=== PATIENT | female | born 1950 | race Caucasian/White ===

== ENCOUNTER 2023-08-21 11:38 | Outpatient (CLI) | payer MEDICARE, SELFPAY ==
--- NOTE | 2023-08-21 12:53 | ECG_ITS ---
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 Measurements Intervals D[place]el Rate: 65 P: 14 MS: 154 QRS: -5 QRSD: 91 T: 10 QT: 402 QTc: 420 Interpretive Statements SINUS RHYTHM VOLTAGE CRITERIA FOR LVH [MEETS CRITERIA IN ONE OF: R(aVL), S(V1), R(V5), R(V5/V6)+S(V1)] BORDERLINE ECG No previous ECG available for comparison Electronically Signed On 08-21-2023 14:58:10 CDT by Dagoberto Mathews M.D.
[2023-08-21 13:33] LABS: Urine Cotinine NEGATIVE
[2023-08-21 16:32] LABS: Hemoglobin A1C 5.4 % (<5.7)
== END 2023-08-21 11:39 | disposition home or self-care (01) ==
LOC: ANHSURGERY 11:45
PROVIDERS: PCP Emergency Medicine; Visit Provider Orthopaedic Surgery
DX: Z01.818 Encounter for other preprocedural examination (principal); M17.12 Unilateral primary osteoarthritis, left knee
CPT/HCPCS: 80307; 83036; 87081; 93005

== ENCOUNTER 2023-09-07 00:30 | Day surgery (SDC) | payer MEDICARE, SELFPAY ==
--- NOTE | 2023-08-21 11:50 | PC.NURSE ---
PRE-OP INSTRUCTIONS, PLEASE READ CAREFULLY Report to the Outpatient Waiting Room, entrance under the green pavilion located off [facility], at time _0600_ on date _09/07/23_. Planned Procedure Time: _0730_. PACK A SMALL OVERNIGHT BAG AND LEAVE IN THE CAR ALONG WITH YOUR WALKER Time changes happen often and if your time is changed the preop area will call you the afternoon before. - You and your visitor will be asked to self-screen and do not enter if you have any COVID symptoms. - A mask is optional within the hospital at this time. -VISITING HOURS 8AM-8PM Patients may have clear liquids (water, carbonated beverages, clear teas, apple juice) until 3 hours prior to surgery (0430 AM) with a maximum of 20 ounces. - No food from midnight until time of surgery Take the following medications with a SIP of water the morning of surgery: _TYLENOL IF NEEDED_ DO NOT STOP ANY OF YOUR OTHER PRESCRIPTION MEDICATIONS PRIOR TO SURGERY ?EXCEPT THE FOLLOWING Medications to discontinue per DR. BYERS - _DICLOFENAC 7 DAYS PRIOR TO SURGERY, Date to take last dose 08/30/23_ Medications to discontinue per ANESTHESIA - _MULTIVITAMIN & SUPPLEMENTS 3 DAYS PRIOR TO SURGERY, Date to take last dose 09/03/23_ Please no make-up, nail syrian, hairspray, perfume, deodorant, or body powder the day of surgery. No jewelry (including any body piercings) or valuables the day of surgery, leave them at home. Please take a shower or bath the night before, or the morning of, surgery with an antibacterial soap. Wear comfortable, loose fitting clothing. - Jewelry must be removed prior to entering the operating room. Rings and piercings that are not removed may be cut off. - The hospital will not accept responsibility for valuables. - Please leave all valuables, including medications, at home the day of surgery. If you are going home after surgery, a licensed lease purchase truck driver must drive you home. - NO public transportation without another adult if you receive anesthesia. - We recommend that an adult stay with you for 24 hours following discharge. - We also recommend that you do not drive, make important decision, drink alcoholic beverages, or take any drugs that were not prescribed by your health care provider for at least 24 hours after your discharge time. Follow any additional instructions given to you from your surgeon. If you or anyone in your household have experienced Covid symptoms in the past week, please notify your surgeon or the nurse liaison at the phone number below for possible testing. Telephone instructions given to _PATIENT_and asked if any additional questions and then verbalized understanding. Patient advised to call surgeon office or pre surgery nurse liaison [phone] if any additional questions.
[2023-08-21 12:11] VITALS: BP 128/64; PULSE 66; RESP 18; TEMP 36.9; O2SAT 100; BMI 31.3
--- NOTE | 2023-09-04 11:36 | PM.IMHP ---
H&P: HPI History of Present Illness Date/Time: 09/04/23 11:36 Chief Complaint: Left knee DJD Narrative: 71-year-old female patient of Dr. Jade 2 presents today for a left total knee arthroplasty. She underwent partial knee replacement on the right in 2019. She did well to recovery is happy with the results. Her left knee she has severe arthritis. She has subluxation of the femur on the tibia on the x-rays and is not considered a candidate for partial knee replacement. Patient is had cortisone injections in the past as well as Visco supplementations. Last cortisone injection was in February of 2023 which only helped for about a month. She takes diclofenac 50 mg twice a day. She has pain on a daily basis. It is affecting her daily lifestyle at this point she feels she is ready to proceed with total knee arthroplasty rather than continue nonsurgical treatment Review of Systems Review of Systems: All systems reviewed & are unremarkable except as noted in HPI and below PMFSH Past Medical History Medical History (Updated 08/04/23 @ 07:51 by Cuauhtemoc Carson MD) Hypertension Surgical History Surgical History (Updated 08/02/23 @ 10:55 by Zayra Moulton CMA) History of lumpectomy of left breast History of partial knee replacement Right knee Family History Family History (Updated 08/02/23 @ 10:56 by Zayra Moulton CMA) Mother Heart disease Lung disease Other Heart attack Social History Social History (Updated 08/02/23 @ 10:56 by Zayra Moulton CMA) Smoking status: Never smoker Second hand tobacco smoke exposure: No Additional smoking assessment comments: PT DENIES ALL FORMS OF TOBACCO USE Alcohol intake: current Alcohol use details: 1-2 DRINKS/YR Substance use: never Substance use type: does not use Do You Feel Safe in your Home?: Yes Lack of Transportation: No Lack of Food: Never True Current Housing: I Have Housing Concerned About Future Housing: No Difficulty Paying Gas/Electric Bills: No Difficulty Paying for Meds: No Currently Unemployed: No Education: High School Diploma/GED Difficulty w/ Childcare or Family Care: No Living arrangements: with family Occupation/Education: retired Spiritual care concerns: No Meds Home Medications and Allergies Home Medications Medication Instructions Recorded Confirmed Type amlodipine 5 mg-valsartan 160 0.5 tablet PO DAILY 08/02/23 08/21/23 History mg-hydrochlorothiazide 12.5 mg tablet diclofenac sodium 50 mg 50 mg PO BID 08/02/23 08/21/23 History tablet,delayed release pantoprazole 20 mg tablet,delayed 10 mg PO QAM 08/02/23 08/21/23 History release acetaminophen 650 mg 650 mg PO Q8H PRN Pain 08/21/23 08/21/23 History tablet,extended release (Tylenol 8 Hour) calcium carb-vit D3-minerals 600 1 tablet PO BID 08/21/23 08/21/23 History mg calcium-400 unit tablet cyanocobalamin (vitamin B-12) 1,000 mcg PO DAILY 08/21/23 08/21/23 History 1,000 mcg capsule multivitamin 1 tablet PO DAILY 08/21/23 08/21/23 History turmeric 1,000 mg DAILY 08/21/23 08/21/23 History [id number] 1 tablet PO DAILY 08/21/23 08/21/23 History 18 mg-10 mg-45 mg-5 mg-250 mg tablet (B Complex w-Vit C) Allergies Allergy/AdvReac Type Severity Reaction Status Date / Time No Known Allergies Allergy Unknown Verified 08/21/23 12:02 Exam Narrative: 73-year-old female alert pleasant. She is 5 ft 1 160 lb, BMI is 31.3. Her left knee range of motion is from 0-125 degrees with pain in full flexion. She has a mild varus deformity in extension. Moderate medial joint line tenderness to palpation mild lateral joint line tenderness. Severe pain with patellofemoral grind. Normal ligament exam in the knee. Hip range of motion is full without discomfort, negative Stinchfield maneuver. Normal quad strength. No edema in lower extremities. 2+ dorsalis pedis and posterior
[2023-09-07] VITALS (16 sets, daily range): BP systolic 111–146; BP diastolic 51–73; PULSE 63–81; RESP 12–16; TEMP 35.6–37; O2SAT 96–100
--- NOTE | ~2023-09-07 | XR_ITS ---
[id number] Ordering provider: Cuauhtemoc Carson MD History: . POST-OP, LEFT TKA . Comparison: None. FINDINGS: BONES: No acute fracture or dislocation. JOINT SPACES: Total knee arthroplasty. Air with postoperative changes seen in the area of the patella . SOFT TISSUES: Normal. IMPRESSION: No acute osseous abnormality left knee. Total knee arthroplasty. Reviewed, dictated and finalized at location A.
[2023-09-07] MEDS: ACETAMINOPHEN 500 MG TABLET 1000 MG PO (06:20)
[2023-09-07] MEDS: VANCOMYCIN 1,000 MG/NS 250 ML BAG 250 MG IVPB (06:35)
--- NOTE | 2023-09-07 06:53 | WPDANESEPPF ---
Anes - Initial Pre Proc Eval Procedure: Operation Date: 09/07/23 07:30 Proposed Procedures p Left Total Knee Arthroplasty - Cuauhtemoc Carson MD Date/Time: 09/07/23 06:53 Surgeon: Cuauhtemoc Carson MD Pre Op Diagnosis: oa left knee Patient Data Age: 73 Gender: F Height: 1.52 m Weight: 73.1 kg Last Vital Signs Temp 98.6 F 09/07/23 06:41 Pulse 65 09/07/23 06:41 Resp 16 09/07/23 06:41 BP 146/65 H 09/07/23 06:41 Pulse Ox 100 09/07/23 06:41 O2 Del Method Room Air 09/07/23 06:41 Allergies Allergy/AdvReac Type Severity Reaction Status Date / Time No Known Allergies Allergy Unknown Verified 09/07/23 06:11 Home Medications Medication Instructions Recorded Confirmed Type amlodipine 5 mg-valsartan 160 0.5 tablet PO DAILY 08/02/23 09/07/23 History mg-hydrochlorothiazide 12.5 mg tablet diclofenac sodium 50 mg 50 mg PO BID 08/02/23 09/07/23 History tablet,delayed release pantoprazole 20 mg tablet,delayed 10 mg PO QAM 08/02/23 09/07/23 History release acetaminophen 650 mg 650 mg PO Q8H PRN Pain 08/21/23 09/07/23 History tablet,extended release (Tylenol 8 Hour) calcium carb-vit D3-minerals 600 1 tablet PO BID 08/21/23 09/07/23 History mg calcium-400 unit tablet cyanocobalamin (vitamin B-12) 1,000 mcg PO DAILY 08/21/23 09/07/23 History 1,000 mcg capsule multivitamin 1 tablet PO DAILY 08/21/23 09/07/23 History turmeric 1,000 mg DAILY 08/21/23 09/07/23 History [id number] 1 tablet PO DAILY 08/21/23 09/07/23 History 18 mg-10 mg-45 mg-5 mg-250 mg tablet (B Complex w-Vit C) Patient hx anesthesia problems: none Family hx anesthesia problems: none Results Review: All pre-operative results and documents have been reviewed as part of the pre-operative evaluation. PMFSH Past Medical History Medical History Hypertension Surgical History Surgical History History of lumpectomy of left breast History of partial knee replacement Right knee Family History Family History Mother Heart disease Lung disease Other Heart attack Social History Social History Smoking status: Never smoker Second hand tobacco smoke exposure: No Additional smoking assessment comments: PT DENIES ALL FORMS OF TOBACCO USE Alcohol intake: current Alcohol use details: 1-2 DRINKS/YR Substance use: never Substance use type: does not use Do You Feel Safe in your Home?: Yes Lack of Transportation: No Lack of Food: Never True Current Housing: I Have Housing Concerned About Future Housing: No Difficulty Paying Gas/Electric Bills: No Difficulty Paying for Meds: No Currently Unemployed: No Education: High School Diploma/GED Difficulty w/ Childcare or Family Care: No Living arrangements: with family Occupation/Education: retired Spiritual care concerns: No Anes - Eval Final PreProcedure Day of Procedure 09/07/23 06:53 Patient weight: normal Heart: regular rate and rhythm Lungs: clear to auscultation Airway: Mallampati scale and special considerations (Missing lower teeth on each side, upper R incisor w noted chip. ) Neurological: alert and oriented Last oral intake: >/= 8 hours ASA classification: II Emergent: no Anesthetic plan: proceed Anesthesia type and monitoring: general ETT and standard monitoring Results Review: All pre-operative results and documents have been reviewed as part of the pre-operative evaluation. EKG w NSR, LVH. Informed Consent: The patient's anesthetic plan and its attendant risks and benefits were discussed with the patient/family/POA. Questions were solicited and answers provided to the satisfaction of the patient/family/POA.
[2023-09-07] MEDS: TRANEXAMIC ACID 1,000MG/ISO100 1,000 MG/100 ML BAG 200 MG IVPB (07:02)
--- NOTE | 2023-09-07 07:11 | WPDHPUPDATE1 ---
History and Physical Update Update Date/Time: 09/07/23 07:11 History and Physical has been reviewed, including an updated exam of the patient. There are NO changes in the patient's condition. Risks, benefits, and alternatives have been discussed and questions answered. Patient agrees to proceed with procedure.
[2023-09-07] MEDS: ceFAZolin 2 GM/D5W 50 ML 2 GM/50 ML BAG IVPB (07:30)
[2023-09-07] MEDS: SODIUM CHLORIDE 0.9% IV 37.7 ML, MORPHINE SULFATE INJ (*CRX) 2 MG, ROPivacaine HCL 1% 2... INFILTRATE (08:15)
[2023-09-07] MEDS: ceFAZolin SODIUM 1 GM VIAL 5 GM (08:16)
--- NOTE | 2023-09-07 08:34 | SUR.OPER ---
SCD machine to right leg not working properly/alarming. Informed Dr. Carson and Javi An that SCD machine needed attention/replacement. Dr. Carson/Javi An refused for SCD replacement. Dr. Boone addressed the issue with surgical team/Dr. Kothari. Dr. Boone and HERNAN notified/aware that SCD replacement refused.
[2023-09-07] MEDS: TRANEXAMIC ACID 1,000 MG/10 ML AMPUL 1000 MG IV PUSH (09:49)
[2023-09-07] MEDS: ceFAZolin SODIUM 1 GM VIAL 2 GM IV PUSH (09:50)
[2023-09-07] MEDS: KETOROLAC 15 MG/ML VIAL (*BKC) IV PUSH (10:19)
[2023-09-07] MEDS: LACTATED RINGERS 1,000 ML 30 ML IV CONT ×2 (10:43)
--- NOTE | 2023-09-07 10:46 | W.PM.PROC2 ---
Procedure Note - Detailed Date of Procedure 09/07/23 Pre-op Diagnosis oa left knee Post-op Diagnosis Same Procedure Performed Left total knee arthroplasty Surgeon Cuauhtemoc Carson MD Band Presser Francisca KENNEDY Anesthesia General Description of Procedure Patient was brought to the operating room and general anesthesia was administered. She received 2 g of Ancef weight based vancomycin 1 g of tranexamic acid preoperatively. Under anesthesia, the left knee did hyperextend a few degrees at least and there was quite a bit of varus valgus laxity in extension. Medially it was pseudolaxity with a good endpoint. The left knee was prepped draped usual fashion. Limb was exsanguinated tourniquet elevated to 300 mmHg. A 7 in longitudinal midline incision was used and a vastus medialis splitting approach utilized splitting the vastus medialis at the superior pole of patella. Infrapatellar fat pad partially excised quadriceps synovectomy carried out. Small osteophytes removed from around the femur the articular cartilage was essentially normal. Minimal lateral facetectomy was performed. A guide jayde was inserted down the femoral canal after aspiration of canal contents using the 5 degree valgus guide, 8 mm of bone removed the distal femur. Next the tibial plateau was cut making a skim cut off the low point medial tibial plateau. This removed about 12 mm laterally. Cut was made perpendicular to the axis of the tibia. Small residual anteromedial tibial osteophytes removed. Meniscal remnants were excised and the PCL was rate recessed from the femur but we did not release posterior capsule. In flexion the gap measured 8 mm medially and 12 mm laterally. The femoral sizing guide was applied the distal femur set at 5? of external rotation which matched Whitesides line. Posterior referencing pinholes were placed. The femur was cut to a size 60 which gave a flush cut with the anterior cortex. The size 60 was trialed and 1 was placed flushed with the medial surface of the medial femoral condyle it overhung 1 mm laterally from the distal lateral femoral condyle. The posterior condyles had a mm bone protruding from the medial and lateral aspects of condyles of the femoral trial respectively. The 10 CR insert trial was placed easily in flexion with a little bit more play at 90? laterally and medially still. The tibia was sized to a 63. We could not get the 67 to fit without overhang at the proper rotation. Confirmation of a flat tibial surface was carried out in the 63 was punched in proper position and we trialed with the 11 insert. This was loose laterally in extension and allowed full extension with a little hyperextension. No play medially. At 90? of flexion the medial side was tighter about 1 mm medial opening versus 3 of lateral opening at 90?. We carefully removed medial and posteromedial tibial osteophyte which was fairly prominent without releasing posteromedial capsule. We then trialed with the 12 and the 12 came out to about 2? of hyperextension with 0.5 mm plate medially and about 4 mm of play laterally. At 90? there was 1 mm play medially to laterally and there was about 3 or 4 mm of anterior posterior drawer play at 90? with the arthrotomy towel clipped. The 5 degree alignment jayde was inserted on the distal femur and I saw that our femur was cut at about 5.5? by this measure. I elected to use piece of chamfer bone and make a 1.[address] on the lateral aspect distal lateral femoral condyle cut and we reinserted the femoral trial and with this the knee opened up about 2-3 mm laterally in extension and had a much better stability feel. The lug holes were drilled. The wafer was irrigated with antibiotic solution and dried and the bony surfaces after preparation with the step drill were irrigated and dried. Two batches of methylmethacrylate were mixed 1 with the gentamicin powder cement was applied to the tibial component size 63 and the size 60 left CR fem
[2023-09-07] MEDS: fentaNYL CITRATE INJ (*CRX) 100 MCG/2 ML VIAL 25 MCG IV PUSH ×2 (11:02→11:13)
[2023-09-07] MEDS: SODIUM CHLORIDE 0.9% IV 1,000 ML 125 ML IV CONT (12:41)
[2023-09-07] MEDS: ACETAMINOPHEN 325 MG TABLET 650 MG PO ×3 (12:44→20:18)
[2023-09-07] MEDS: oxyCODONE HCL (*CRX) 5 MG TAB IR PO ×3 (12:45→20:18)
[2023-09-07] MEDS: ONDANSETRON INJ 4 MG/2 ML VIAL IV PUSH ×2 (12:53→17:02)
--- NOTE | 2023-09-07 13:00 | ADMGEN ---
This patient, Yolande Pugh, was admitted to [facility] Surg Room 327-01. Patient/family oriented to hospital policies and general routines including ID bracelet, bed and alarms, visiting hours, pain management, procedures, bathroom and other care routines, personal items, smoking policy, room service/diet, and visiting hours. Information on how to activate the Rapid Response Team has been discussed. Patient/Family are encouraged to report perceived risks to care and to ask questions if they do not understand what they are told or what they should do.
--- NOTE | 2023-09-07 13:30 | PM.IMCN ---
Assessment and Plan Assessment and plan (1) Primary osteoarthritis of left knee: Code(s): M17.12 - Unilateral primary osteoarthritis, left knee Status: Acute Assessment and Plan: Patient underwent a total left knee arthroplasty on 09/07/2023 with Alli CAMP. - ambulate with assistance and up to chair - use IS - neurovasc checks - see order for intervals - SCDs - resume diet - pain management - zofran PRN for nausea - monitor labs in AM - CBC and BMP - bowel regimen: docusate/senna, polyethylene glycol - maintenance fluids: NS 125 mL/hr x8 hrs - prophylactic abx - Ancef - PT/OT (2) Hypertension: Code(s): I10 - Essential (primary) hypertension Status: Chronic Assessment and Plan: - chronic, currently 138/66 - continue home medications: [id number] resumed - monitor Plan Patient underwent a left knee total arthroplasty on 09/07/2023. home medications reviewed and resumed as appropriate. Awaiting PT/OT eval and treat. Diet: regular GI Prophylaxis: not indicated DVT Prophylaxis: SCDs, starting Eliquis tomorrow Lines: peripheral Code Status: full code HPI Date of Consult Consult date: 09/08/23 Requesting Physician: Cuauhtemoc Carson MD Primary Care Provider: Sher Jade, Consult Narrative Reason for consult: Medical Management Narrative: 73 y/o F presents here for surgical management of her severe left knee arthritis with PMH of HTN. The patient presented here for a surgical management of naeem severe left knee arthritis. Pain in her left knee has been affecting her ADLs and other activities (i.e. walking, standing, dancing). Has previously tried conservative treatment: cortisone injections, Visco supplementation, Tylenol arthritis, and diclofenac. Last injection in Feb which only provided short relief. She has previously underwent a right partial knee replacement in 2019. Patient was satisfied with the results. However, due to subluxation seen on XR, she is not a candidate for a partial replacement. Patient proceeded with the left knee total arthroplasty today (09/06) with Alli CAMP. No current complaints. Denying nausea, vomiting, or significant post-op pain. Reports recent change to her medication - HTN med, however it was too much so she has been cutting the dose in half. Preop workup:Hemoglobin A1c 5.4%, cotinine negative, XR L Knee showed severe medial compartment osteoarthritis which is [id number]-hv-vvvf with moderate medial subluxation of femur on tibia resulting in varus deformity. Preop VS: 98.5? F, HR 66, RR 18, 128/64, and 100% on RA. Review of Systems Review of Systems: All systems reviewed & are unremarkable except as noted in HPI and below PMFSH Past Medical History Medical History (Updated 09/07/23 @ 13:56 by Karen Marc APRN) Esophageal stricture s/p dilation in 2022 GERD (gastroesophageal reflux disease) Hypertension Osteoarthritis, multiple sites Precancerous skin lesion s/p cryotherapy, facial Surgical History Surgical History History of lumpectomy of left breast History of partial knee replacement Right knee Family History Family History Mother Heart disease Lung disease Other Heart attack Social History Social History Smoking status: Never smoker Second hand tobacco smoke exposure: No Additional smoking assessment comments: PT DENIES ALL FORMS OF TOBACCO USE Alcohol intake: current Alcohol use details: 1-2 DRINKS/YR Substance use: never Substance use type: does not use Do You Feel Safe in your Home?: Yes Lack of Transportation: No Lack of Food: Never True Current Housing: I Have Housing Concerned About Future Housing: No Difficulty Paying Gas/Electric Bills: No Difficulty Paying for Meds: No
[2023-09-07] MEDS: ceFAZolin 1 GM/NS 50 ML 1 GM/50 ML BAG IVPB ×2 (14:34→22:27)
--- NOTE | 2023-09-07 14:55 | PCPTNOTE ---
Attempted PT evaluation, pt actively vomiting and reporting dizziness. RN present prior to therapist leaving the room.
[2023-09-07] MEDS: SENNA/DOCUSATE SODIUM TABLET 2 TAB PO (16:44)
[2023-09-07] MEDS: VANCOMYCIN 1,000 MG/NS 250 ML 1,000 MG/250 ML BAG 250 MG IVPB (16:45)
[2023-09-07] MEDS: FAMOTIDINE 20 MG TABLET PO (20:18)
[2023-09-08] MEDS: ACETAMINOPHEN 325 MG TABLET 650 MG PO ×3 (00:07→08:45)
[2023-09-08] MEDS: oxyCODONE HCL (*CRX) 5 MG TAB IR PO ×4 (00:07→11:25)
[2023-09-08 02:01] VITALS: BP 105/47; PULSE 68; RESP 13; TEMP 36.6; O2SAT 95
[2023-09-08] MEDS: ONDANSETRON INJ 4 MG/2 ML VIAL IV PUSH (05:08)
[2023-09-08] MEDS: VANCOMYCIN 1,000 MG/NS 250 ML 1,000 MG/250 ML BAG 250 MG IVPB (05:26)
[2023-09-08 05:52] VITALS: BP 105/46; PULSE 66; RESP 13; TEMP 36.5; O2SAT 97
[2023-09-08 06:58] LABS: Basophils Percent Auto 0.2 % (0.2-1.2); Hematocrit 29.7 % (37.0-47.0); Hemoglobin 9.8 g/dL (12.0-15.0); Immature Granulocyte Absolute 0.03 K/mm3 (0.00-0.031); Immature Granulocyte Percent A 0.3 % (0-0.5); Lymphocytes Absolute Auto 1.18 K/mm3 (0.9-3.2); Lymphocytes Percent Auto 11.2 % (18.3-44.2); Mean Corpuscular Hemoglobin 30.7 pg (26-34); Mean Corpuscular Volume 93.1 fl (80-100); Mean Platelet Volume 9.6 fl (7.4-10.4); Monocytes Absolute Auto 1.2 K/mm3 (0.1-0.6); Monocytes Percent Auto 11.1 % (2.6-8.5); Neutrophils Absolute Auto 8.2 K/mm3 (1.3-6.7); Neutrophils Percent Auto 77.2 % (45.5-73.1); Platelet Count Result 217 k/mm3 (150-375); Red Blood Count 3.19 M/mm3 (4.2-5.4); Red Cell Distribution Width 13.9 % (11.5-14.5); White Blood Count 10.6 K/mm3 (4.5-10.0)
[2023-09-08 07:10] LABS: Anion Gap 4 mmol/L (4-12); Blood Urea Nitrogen 11 mg/dL (7-17); Calcium 8.7 mg/dL (8.4-10.2); Carbon Dioxide 25 mmol/L (22-30); Chloride 108 mmol/L (98-107); Estimated CRCL calculation 56 ml/min; Estimated Glomerular Filt Rate > 60; Glucose 113 mg/dL (65-110); Potassium 3.5 mmol/L (3.4-5.0); Sodium 137 mmol/L (137-145)
--- NOTE | 2023-09-08 07:21 | PM.PNORT ---
Subjective Subjective Date/Time Seen: 09/08/23 07:21 Interval history: Postop day 1 patient is alert. She is afebrile vital signs are stable. She did have some nausea postoperatively yesterday little bit overnight. This is dissipated at this point. Pain is well controlled. Morning labs and not been completed. She was up walking to the restroom and in her room yesterday. Dressing is dry and intact she only has minimal swelling in the knee. Neurovascularly she is intact. Will plan to have patient work with Physical therapy this morning and if she is comfortable she be discharged home. If she wishes to stay for an additional therapy session she will leave this afternoon. Objective Data Vital Signs Vital Signs: Vital Signs - 24 hr 09/07/23 10:43 09/07/23 10:50 09/07/23 11:00 Temperature 97.9 F Pulse Rate 73 68 70 Respiratory Rate 16 12 12 Blood Pressure 111/57 L 127/67 127/67 Pulse Oximetry 99 100 100 Oxygen Delivery Simple Face Mask Simple Face Mask Simple Face Mask Oxygen Flow Rate 8 8 8 09/07/23 11:15 09/07/23 11:30 09/07/23 11:45 Temperature Pulse Rate 68 63 72 Respiratory Rate 12 12 12 Blood Pressure 121/60 117/65 137/73 Pulse Oximetry 96 100 100 Oxygen Delivery Nasal Cannula Nasal Cannula Nasal Cannula Oxygen Flow Rate 2 2 2 09/07/23 12:00 09/07/23 12:10 09/07/23 12:30 Temperature 96.0 F L Pulse Rate 72 81 74 Respiratory Rate 12 12 16 Blood Pressure 133/70 142/66 H 144/68 H Pulse Oximetry 100 100 100 Oxygen Delivery Nasal Cannula Nasal Cannula Oxygen Flow Rate 2 2 09/07/23 13:15 09/07/23 12:45 09/07/23 13:15 Temperature 96.0 F L 96.0 F L Pulse Rate 80 81 Respiratory Rate 14 16 Blood Pressure 140/69 138/66 Pulse Oximetry 100 100 100 Oxygen Delivery Nasal Cannula Oxygen Flow Rate 3 09/07/23 14:15 09/07/23 18:01 09/07/23 21:13 Temperature 96.0 F L 97.6 F 98.3 F Pulse Rate 68 64 68 Respiratory Rate 16 16 13 Blood Pressure 138/67 126/62 117/51 L Pulse Oximetry 100 99 97 Oxygen Delivery Oxygen Flow Rate 09/07/23 20:20 09/08/23 02:01 09/08/23 05:52 Temperature 97.8 F 97.7 F Pulse Rate 68 68 66 Respiratory Rate 13 13 13 Blood Pressure 105/47 L 105/46 L Pulse Oximetry 97 95 97 Oxygen Delivery Room Air Oxygen Flow Rate Intake/Output Intake/Output: Intake & Output 09/05/23 09/06/23 09/07/23 09/08/23 23:59 23:59 23:59 23:59 Intake Total 700 750 Output Total 350 Balance 350 750 Meds/Results Medications: Active Medications Generic Name Dose Route Start Last Admin Trade Name Freq PRN Reason Stop Dose Admin Acetaminophen 650 mg 09/07/23 13:00 09/08/23 05:26 Acetaminophen 325 Mg Tablet PO 650 mg Q4H JANETTE Administration Amlodipine Besylate 2.5 mg 09/08/23 09:00 Amlodipine Besylate 2.5 Mg Tablet PO 10/08/23 08:59 DAILY JANETTE Apixaban 2.5 mg 09/08/23 09:00 Apixaban 2.5 Mg Tablet PO 09/19/23 21:01 Q12HR JANETTE Cefdinir 300 mg 09/08/23 09:00 Cefdinir 300 Mg Capsule PO Q12HR JANETTE Celecoxib 200 mg 09/08/23 08:00 Celecoxib 200 Mg Capsule PO DAILY@0800 JANETTE Cyanocobalamin 1,000 mcg 09/08/23 09:00 Cyanocobalamin 1,000 Mcg Tablet PO DAILY JANETTE Diphenhydramine HCl 25 mg 09/07/23 12:16 Diphenhydramine Hcl Inj 50 Mg/Ml Vial IV PUSH Q6H PRN Itching Famotidine 20 mg 09/07/23 21:00 09/07/23 20:18 Famotidine 20 Mg Tablet PO 20 mg Q12HR JANETTE Administration Hydrochlorothiazide 6.25 mg 09/08/23 09:00 Hydrochlorothiazide 6.25 Mg Tablet PO DAILY JANETTE Cefazolin Sodium 1 gm in 50 mls @ 100 mls/hr 09/07/23 15:00 09/07/23 22:27 Ancef 1 Gm/Ns 50 Ml IVPB 09/08/23 07:29 100 mls/hr Q8H JANETTE Administration Morphine Sulfate 2 mg 09/07/23 12:16 Morphine Sulfate (*Crx) 2 Mg/Ml Inj IV PUSH Q2H PRN Breakthrough Pain Rated 4-6 or NPO Naloxone HCl 0.1 mg 09/07/23 12:16 Naloxone Hcl 0.4 Mg/Ml Vial IV PUSH Q2M PRN Opiat
--- NOTE | 2023-09-08 07:26 | PM.DS ---
DS: Admitting Diagnosis Discharge Date 09/06 Admitting Diagnosis Left knee DJD DS: Discharge Diagnosis Discharge Diagnosis (1) Primary osteoarthritis of left knee: Code(s): M17.12 - Unilateral primary osteoarthritis, left knee Status: Acute DS: Summary Hospital Course Hospital Course: 73-year-old female who underwent left total knee arthroplasty on 09/07. Underwent the procedure without complications. She did have nausea postoperatively the day of surgery and overnight. This did dissipate by the morning of postop day 1. She is on Eliquis for DVT prophylaxis. She is weight-bearing as tolerated. She was up walking in her room with therapy the day of surgery. Pain is well controlled with scheduled Tylenol every 4 hours as well as oxycodone 5 mg. She has been afebrile vital signs are stable through her hospital course. She will be discharged to home on 09/07. Patient was advised to keep the leg elevated at home to prevent swelling. She should do her exercises hourly basis at home. She will home with 1 week Omnicef. She will also get Senokot and MiraLax. Patient was advised any questions or concerns she is to call the office otherwise we will see her at her appointments Time Spent with Patient Time attestation: Total time spent providing and/or coordinating discharge services: DS: Data Data Completed and Pending Labs on day of discharge: Labs from last 24 hours 09/08/23 06:31 WBC 10.6 H RBC 3.19 L Hgb 9.8 L Hct 29.7 L MCV 93.1 MCH 30.7 MCHC 33.0 RDW 13.9 Plt Count 217 MPV 9.6 Immature Gran % (Auto) 0.3 Neut % (Auto) 77.2 H Lymph % (Auto) 11.2 L [place] % (Auto) 11.1 H Eos % (Auto) 0.0 Baso % (Auto) 0.2 Lymph # (Auto) 1.18 [place] # (Auto) 1.2 H Eos # (Auto) 0.0 Baso # (Auto) 0.0 Abs Immat Gran (auto) 0.03 Absolute Neuts (auto) 8.2 H Absolute Nucleated RBC 0.000 Nucleated RBC % 0.0 Sodium 137 Potassium 3.5 Chloride 108 H Carbon Dioxide 25 Anion Gap 4 BUN 11 Creatinine 0.70 Estim Creat Clear Calc 56 Estimated GFR > 60 Glucose 113 H Calcium 8.7 Discharge Plan Discharge Patient Disposition: Home, Self-Care Discharge Instructions: MILANA BYERS M.D [facility] [address] [place] [address] POST-OPERATIVE DISCHARGE INSTRUCTIONS TOTAL KNEE ARTHROPLASTY 1. When resting, do not rest in the chair.When resting, lie on your back, with back flat on the couch or bed, with leg elevated above heart to minimize swelling. You may put a pillow under your head. . Significant swelling could indicate a blood clot and if this occurs call the office (or go to the ER) to have a venous ultrasound. Therefore, do not rest in a chair. 2. At least five times a day spend several minutes stretching your knee into flexion while sitting in the chair and also stretching your knee out straight The abilities to bend your knee fully and straighten your knee fully are two most important knee functions to focus on during your recovery. 3. It is ok to sit in chair to eat, use the toilet and receive a guest and to do your stretching exercises, but, sitting in a chair will cause your leg to swell. Therefore, avoid additional time sitting in the chair. and don't rest in the chair. 4. Wound Care: Nursing will give you an additional Mepilex dressing at the time of discharge. Patient to remove the dressing and apply a new Mepilex dressing at home 7 days after surgery and leave the dressing on until seen in office. It is normal to see a small amount of blood on the silver pad of the Mepilex dressing. Its designed to hold small spots of blood. However, if the blood reaches the edge of the pad up to the boarder of the clear membrane that surrounds the pad, the pad is saturated and the Mepilex dressing should be removed and a new Mepilex dressing should be applied. 5. May shower with a Mepilex dressing in place.The water will run off
[2023-09-08 08:00] VITALS: BP 109/47; PULSE 60; RESP 20; TEMP 37.1; O2SAT 95
--- NOTE | 2023-09-08 08:01 | WPDANESPN ---
Anes - Prog Note Post-Op Date/Time: 09/08/23 08:01 Cardiovascular status: normal Respiratory status: normal Airway patency: baseline Mental status: baseline Post-Op hydration status: normal Vital Signs: Last Vital Signs Temp 36.5 C 09/08/23 05:52 Pulse 66 09/08/23 05:52 Resp 13 09/08/23 05:52 BP 105/46 L 09/08/23 05:52 Pulse Ox 97 09/08/23 05:52 O2 Del Method Room Air 09/07/23 20:20 O2 Flow Rate 3 09/07/23 13:15 Pain Score (VAS): Patient asleep, no nonverbal signs of pain present at this time. I/O: Intake & Output 09/07/23 09/08/23 09/08/23 23:59 07:59 15:59 Intake Total 250 750 Output Total 350 Balance -100 750 Laboratory Tests 09/08/23 06:31 09/08/23 06:31 09/08/23 06:31 WBC 10.6 H RBC 3.19 L Hgb 9.8 L Hct 29.7 L MCV 93.1 MCH 30.7 MCHC 33.0 RDW 13.9 Plt Count 217 MPV 9.6 Immature Gran % (Auto) 0.3 Neut % (Auto) 77.2 H Lymph % (Auto) 11.2 L [place] % (Auto) 11.1 H Eos % (Auto) 0.0 Baso % (Auto) 0.2 Lymph # (Auto) 1.18 [place] # (Auto) 1.2 H Eos # (Auto) 0.0 Baso # (Auto) 0.0 Abs Immat Gran (auto) 0.03 Absolute Neuts (auto) 8.2 H Absolute Nucleated RBC 0.000 Nucleated RBC % 0.0 Sodium 137 Potassium 3.5 Chloride 108 H Carbon Dioxide 25 Anion Gap 4 BUN 11 Creatinine 0.70 Estim Creat Clear Calc 56 Estimated GFR > 60 Glucose 113 H Calcium 8.7 Post-procedural complaints: none Patient Feedback: Patient satisfied with anesthetic care.
[2023-09-08] MEDS: VALSARTAN 80 MG TABLET PO (08:44)
[2023-09-08] MEDS: SENNA/DOCUSATE SODIUM TABLET 2 TAB PO (08:45)
[2023-09-08] MEDS: CEFDINIR 300 MG CAPSULE PO (08:45)
[2023-09-08] MEDS: APIXABAN 2.5 MG TABLET PO (08:45)
[2023-09-08] MEDS: CELECOXIB 200 MG CAPSULE PO (08:45)
[2023-09-08] MEDS: CYANOCOBALAMIN 1,000 MCG TABLET 1000 MCG PO (08:45)
[2023-09-08] MEDS: FAMOTIDINE 20 MG TABLET PO (08:45)
[2023-09-08] MEDS: hydroCHLOROthiazide 6.25 MG TABLET PO (08:45)
[2023-09-08] MEDS: amLODIPine BESYLATE 2.5 MG TABLET PO (08:45)
[2023-09-08] MEDS: polyethylene glycoL 3350 17 GM POWD.PACK PO (08:46)
[2023-09-08] MEDS: ceFAZolin 1 GM/NS 50 ML 1 GM/50 ML BAG IVPB (09:00)
== END 2023-09-08 12:40 | disposition home or self-care (01) ==
LOC: ANHSURGERY 05:44 → ANH3MEDSUR 12:19
PROVIDERS: Physician Assistant Surgical; PCP Emergency Medicine; Visit Provider Orthopaedic Surgery
PROC: (CPT 27447; principal; 2023-09-07 07:30)
DX: M17.12 Unilateral primary osteoarthritis, left knee (principal); M25.762 Osteophyte, left knee; M21.062 Valgus deformity, not elsewhere classified, left knee; M79.4 Hypertrophy of (infrapatellar) fat pad; I10 Essential (primary) hypertension; K21.9 Gastro-esophageal reflux disease without esophagitis; K22.2 Esophageal obstruction; Z90.12 Acquired absence of left breast and nipple; Z96.651 Presence of right artificial knee joint; Z82.49 Family history of ischemic heart disease and other diseases of the circulatory system
CPT/HCPCS: 27447; 36415; 73560; 80048; 85025; 86850; 86900; 86901; 97110; 97116; 97161; 97165; 97530; 97535; A9270; C1713; C1776; J0171; J0690; J1100; J1170; J1885; J2250; J2270; J2371; J2405; J2704; J2795; J3010; J3370; J7030; J7120